=== PATIENT | female | born 1960 | race Caucasian/White ===

== ENCOUNTER 2017-12-22 19:17 | Emergency (ER) | payer SELFPAY ==
[2017-12-22] MEDS ORDERED: KETOROLAC 30 MG/ML INJ ONE (20:10)
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
[2017-12-22 21:31] VITALS: BP 105/69; TEMP 98; O2SAT 98
== END 2017-12-22 20:56 | disposition home or self-care (01) ==
LOC: ER 19:17
DX: S13.9XXA Sprain of joints and ligaments of unspecified parts of neck, initial encounter (principal); V43.52XA Car driver injured in collision with other type car in traffic accident, initial encounter; Y93.9 Activity, unspecified; Y92.410 Unspecified street and highway as the place of occurrence of the external cause
CPT/HCPCS: 96372; 99283

== ENCOUNTER 2017-12-26 14:18 | Emergency (ER) | payer SELFPAY ==
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
--- NOTE | 2017-12-26 16:03 | RAD REPORT ---
EXAM DESCRIPTION: RAD - Lumbar Spine 3 Views - 12/26/2017 3:56 pm CLINICAL HISTORY: back pain Radiculopathy COMPARISON: No comparisons FINDINGS: Vertebral body heights appear maintained. No compression fracture noted. Disc thinning wit h small endplate osteophytes at L4-5 and L5-S1. No spondylolysis or spondylolisthesis. Aortic atherosclerosis is present. IMPRESSION: No acute lumbar spine abnormality. Mild lower lumbar spondylosis.
[2017-12-26] MEDS ORDERED: IBUPROFEN 400 MG TAB ONE (16:42)
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
[2017-12-26 17:08] VITALS: TEMP 97.9
[2017-12-26 17:10] VITALS: BP 107/76; O2SAT 98
== END 2017-12-26 17:03 | disposition home or self-care (01) ==
LOC: ER 14:18
DX: S29.012A Strain of muscle and tendon of back wall of thorax, initial encounter (principal); S33.5XXA Sprain of ligaments of lumbar spine, initial encounter; R51 Headache
CPT/HCPCS: 70450; 72100; 72125; 99284

== ENCOUNTER 2018-01-02 11:37 | Emergency (ER) | payer SELFPAY ==
[2018-01-02] MEDS ORDERED: IBUPROFEN 200 MG TAB PO ONE (13:13)
[2018-01-02] MEDS ORDERED: CYCLOBENZAPRINE 10 MG TAB ONE (13:13)
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
[2018-01-02 14:03] VITALS: BP 112/78; TEMP 97.8; O2SAT 97
== END 2018-01-02 13:54 | disposition home or self-care (01) ==
LOC: ER 11:37
DX: S39.012A Strain of muscle, fascia and tendon of lower back, initial encounter (principal); S29.012A Strain of muscle and tendon of back wall of thorax, initial encounter; S16.1XXA Strain of muscle, fascia and tendon at neck level, initial encounter; V49.49XA Driver injured in collision with other motor vehicles in traffic accident, initial encounter
CPT/HCPCS: 72125; 99284

== ENCOUNTER 2019-06-16 19:05 | Emergency (ER) | payer OTHER ==
--- NOTE | 2019-06-16 21:40 | RAD REPORT ---
EXAM DESCRIPTION: RAD - Knee Right 3 View - 06/16/2019 8:54 pm CLINICAL HISTORY: knee pain, fall COMPARISON: No comparisons FINDINGS: No fracture, dislocation or periosteal reaction.No joint effusion seen. No joint space yu rowing. Contusion or edema is seen in the soft tissues anterior to the proximal tibia and knee joint. No foreign body in the soft tissues. IMPRESSION: Anterior soft tissue contusion/edema change. No acute bone or joint finding. Clinical concerns for internal derangement or occult bony injury could be further assessed with MR im aging.
--- NOTE | 2019-06-16 21:40 | RAD REPORT ---
EXAM DESCRIPTION: RAD - Knee Left 3 View - 06/16/2019 8:54 pm CLINICAL HISTORY: knee pain, fall COMPARISON: No comparisons FINDINGS: No fracture, dislocation or periosteal reaction.No joint effusion seen. No joint space yu rowing. No soft tissue abnormality. IMPRESSION: Negative left knee. Clinical concerns for internal derangement or occult bony injury could be further assessed with MR im aging.
--- NOTE | 2019-06-16 21:46 | EDPHYS ---
Physician Documentation [facility] Name: Pema Gamble Age: 58 yrs Sex: Female : 1960 Arrival Date: 06/16/2019 Time: 19:05 Bed 13 Private MD: ED Physician Richardson Elliott HPI: 06/15 19:44 This 58 yrs old Female presents to ER via Ambulatory with complaints of Fall jmm Injury, Knee Injury. 19:44 Details of fall: The patient fell from an upright position. Onset: The symptoms/episode jmm began/occurred acutely, just prior to arrival. Associated injuries: The patient sustained right and left knee. The patient has not experienced similar symptoms in the past. Patient states she tripped in the parking lot landing on both knees. Patient denies other injury. . Historical: - Allergies: 19:37 No Known Allergies; ca1 - PMHx: 19:37 Heart Murmur; ca1 - PSHx: 19:37 Hysterectomy; ca1 - Immunization history:: Adult Immunizations up to date, Last tetanus immunization: up to date Flu vaccine is not up to date. - Social history:: Smoking status: Patient denies any tobacco usage or history of. ROS: 19:44 Constitutional: Negative for fever, chills, and weight loss, Cardiovascular: Negative jmm for chest pain, palpitations, and edema, Respiratory: Negative for shortness of breath, cough, wheezing, and pleuritic chest pain. 19:44 MS/extremity: Positive for injury or acute deformity, pain. 19:44 All other systems are negative. Exam: 19:44 Constitutional: This is a well developed, well nourished patient who is awake, alert, jmm and in no acute distress. Head/Face: atraumatic. Eyes: EOMI, no conjunctival erythema appreciated ENT: Moist Mucus Membranes Neck: Trachea midline, Supple Chest/axilla: Normal chest wall appearance and motion. Cardiovascular: Regular rate and rhythm. No edema appreciated Respiratory: Normal respirations, no respiratory distress appreciated Abdomen/GI: Non distended, soft Back: Normal ROM 19:44 Musculoskeletal/extremity: FROM appreciated to both knees, compartments soft, full dorsalis pulse, NVI. 19:44 Skin: abrasions noted to the knees bilaterally, no active bleeding is appreciated. 19:44 Neuro: Orientation: is normal, Mentation: is normal, Memory: is normal. 19:44 Psych: Behavior/mood is pleasant, cooperative. Vital Signs: 19:34 BP 114 / 75; Pulse 88; Resp 16 S; Temp 97.2(TE); Pulse Ox 97% on R/A; Weight 81.65 kg ca1 (R); Height 5 ft. 5 in. (165.10 cm) (R); Pain 6/10; 21:56 BP 112 / 68; Pulse 81; Resp 15; Temp 98; Pulse Ox 99% on R/A; rv 19:34 Body Mass Index 29.95 (81.65 kg, 165.10 cm) ca1 MDM: 19:44 Patient medically screened. [facility] 21:44 Data reviewed: vital signs, nurses notes. Counseling: I had a detailed discussion with génesis the patient and/or guardian regarding: the historical points, exam findings, and any diagnostic results supporting the discharge/admit diagnosis, radiology results, the need for outpatient follow up, to return to the emergency department if symptoms worsen or persist or if there are any questions or concerns that arise at home. ED course: Negative xray. Patient is advised to follow up with ortho for further evaluation. Patient understood and agrees with the plan of care. . 03 19:54 Order name: Knee Right 3 View XRAY; Complete Time: 21:44 [facility] 06/15 19:54 Order name: Knee Left 3 View XRAY; Complete Time: 21:44 [facility] 06/15 21:07 Order name: Knee Immobilizer; Complete Time: 21:26 [facility] Administered Medications: No medications were administered Disposition: 06/16 07:44 Co-signature as Attending Physician, Richardson Elliott MD I agree with the assessment and [facility] plan of care. Disposition: 06/16/19 21:45 Discharged to Home. Impression: Internal derangement of knee. - Condition is Stable. - Discharge Instructions: Knee Pain. - Prescriptions for Ibuprofen 600 mg Oral Tablet - take 1 tablet by ORAL route every 6 hours As needed take with food; 30 tablet. - Medication Reconciliation Form, Thank You Letter, Antibiotic Education, Prescription Opioid Use, Work release form form. - Follow up: Private Physician; When: 2 - 3 days; Reason: Recheck today's complaints, Continuance of care, Re-evaluation by your physician. Signatures: Dispatcher [employer] Richardson Gavin MD MD cha Mickail, Joel, PA PA jmm Vicente, Ronaldo, RN RN Adrianna Chawla RN RN ca1 Corrections: (The following items were deleted from the chart) 06/15 21:57 21:45 06/16/2019 21:45 Discharged to Home. Impression: Internal derangement of knee. rv Condition is Stable. Forms are Medication Reconciliation Form, Thank You Letter, Antibiotic Education, Prescription Opioid Use. Follow up: Private Physician; When: 2 - 3 days; Reason: Recheck today's complaints, Continuance of care, Re-evaluation by your physician. génesis
--- NOTE | 2019-06-16 21:46 | ER ---
Nurse's Notes [facility] Name: Pema Gamble Age: 58 yrs Sex: Female : 1960 Arrival Date: 06/16/2019 Time: 19:05 Bed 13 Private MD: Diagnosis: Internal derangement of knee Presentation: 06/15 19:34 Chief complaint: Patient states: Tripped and fell on the parking block today at about ca1 1615. Landed on knees, reports R knee pain. Took 2 Tylenol, and 2 Ibuprofen. Coronavirus screen: The patient has NOT traveled to a country currently being monitored by the [facility] within the last 14 days. The patient has NOT had contact with any known and/or suspected case of coronavirus. Ebola Screen: Patient negative for fever greater than or equal to 101.5 degrees Fahrenheit, and additional compatible Ebola Virus Disease symptoms Patient denies exposure to infectious person. Patient denies travel to an Ebola-affected area in the 21 days before illness onset. No symptoms or risks identified at this time. Initial Sepsis Screen: Does the patient meet any 2 criteria? No. Patient's initial sepsis screen is negative. Does the patient have a suspected source of infection? No. Patient's initial sepsis screen is negative. Risk Assessment: Do you want to hurt yourself or someone else? Patient reports no desire to harm self or others. Onset of symptoms was June 16, 2019 at 16:15. 19:34 Method Of Arrival: Ambulatory ca1 19:34 Acuity: CAMILLE 4 ca1 Historical: - Allergies: 19:37 No Known Allergies; ca1 - PMHx: 19:37 Heart Murmur; ca1 - PSHx: 19:37 Hysterectomy; ca1 - Immunization history:: Adult Immunizations up to date, Last tetanus immunization: up to date Flu vaccine is not up to date. - Social history:: Smoking status: Patient denies any tobacco usage or history of. Screenin:10 Abuse screen: Denies threats or abuse. Denies injuries from another. Nutritional rv screening: No deficits noted. Tuberculosis screening: No symptoms or risk factors identified. Fall Risk None identified. Primary Survey: 20:12 NO uncontrolled hemorrhage observed. rv Assessment: 20:06 General: Appears in no apparent distress. Behavior is calm, cooperative. Pain: rv Complains of pain in right knee and left knee. Neuro: Level of Consciousness is awake, alert, obeys commands, Oriented to person, place, time, situation. Cardiovascular: Patient's skin is warm and dry. Respiratory: Airway is patent. Derm: Wound noted right knee and left knee Wound is abrasions. Vital Signs: 19:34 BP 114 / 75; Pulse 88; Resp 16 S; Temp 97.2(TE); Pulse Ox 97% on R/A; Weight 81.65 kg ca1 (R); Height 5 ft. 5 in. (165.10 cm) (R); Pain 6/10; 21:56 BP 112 / 68; Pulse 81; Resp 15; Temp 98; Pulse Ox 99% on R/A; rv 19:34 Body Mass Index 29.95 (81.65 kg, 165.10 cm) ca1 ED Course: 19:05 Patient arrived in ED. cl3 19:36 Triage completed. ca1 19:37 Arm band placed on right wrist. ca1 19:38 Lenard Perdue PA is PHCP. [facility] 19:38 Richardson Elliott MD is Attending Physician. [facility] 19:56 Venu Alves, JORDEN is Primary Nurse. rv 20:11 ice pack and gini wrap on both knees. rv 20:15 Patient has correct armband on for positive identification. Bed in low position. Pulse rv ox on. NIBP on. 20:16 No provider procedures requiring assistance completed. Patient did not have IV access rv during this emergency room visit. 20:54 Knee Right 3 View XRAY In Process Unspecified. EDMS 20:54 Knee Left 3 View XRAY In Process Unspecified. EDMS Administered Medications: No medications were administered Outcome: 21:45 Discharge ordered by . jmm 21:56 Discharged to home ambulatory. rv 21:56 Condition: good 21:56 Discharge instructions given to patient, Instructed on discharge instructions, follow up and referral plans. medication usage, Demonstrated understanding of instructions, follow-up care, medications, Prescriptions given X 1. 21:57 Patient left the ED. rv Signatures: Dispatcher [employer] EDMS Lenard Perdue PA PA jmm Vicente, Ronaldo, RN RN rv Adrianna Cyr RN RN ca1 Lala Stern cl3 Corrections: (The following items were deleted from the chart) 19:37 19:34 Chief complaint: Patient states: Tripped and fell on the parking block today at ca1 about 1615. Landed on knees, reports R knee pain. ca1
== END 2019-06-16 21:57 | disposition home or self-care (01) ==
LOC: ER 19:05
DX: M25.461 Effusion, right knee (principal); W18.09XA Striking against other object with subsequent fall, initial encounter; Y93.01 Activity, walking, marching and hiking; Y92.481 Parking lot as the place of occurrence of the external cause
CPT/HCPCS: 99284

== ENCOUNTER 2024-03-20 02:54 | Emergency (ER) | payer OTHER ==
--- OUTSIDE RECORDS SUMMARY | 2024-03-20 02:57 | XMS REPORT | Continuity of Care Document ---
Author Name Unknown Address [address] [place] [address] [facility] thconnect Address [address] [place] [address] Care Team Providers Care Gravedigger Name Role Phone Pcp, Patient Does Not Have A Primary Care Physic yesenia Travis Killian Attending Clinician Unavailable MARCELINO RAY Attending Clinician Unavailable Therapy, [facility] Bl[facility] Occup Attending Clinician Unava Marcelino Ramirez MD Attending Clinician [phone] Doctor Unassigned, [place] Attending Clinician U navailable Payers Payer Name Policy Type Policy Number Effective Date Expirati on Date Source [facility] PPO/POS [id number] 2021 00:00:00 [facility] C1 [id number] 2019 00:00:00 [facility] Problems Condition Name Condition Details Condition Category Status Onset Date Resolution Date Last Treatment Date Treating Clinician Comments Source Effusion of finger joint Effusion of finger joint Disease Active 2021-03 00:00: 00 [facility] Finger stiffness, left Finger stiffness, left Disease Active 2021-03 00:00: 00 [facility] Finger pain, left Finger pain, left Disease Active 2021-03 00:00: 00 [facility] [id number] Current moderate episode of major depressive disorder without prior episode Problem Active [facility] [id number] Mixed hyperlipid emia Problem Active [facility] [id number] Pain in joint of left shoulder Problem Active [facility] [id number] Contusion of left shoulder, sequela Problem Active [facility] Allergies, Adverse Reactions, Alerts Allergy Name Allergy Type Status Severity Reaction(s) Onset Date Inactive Date Treating Clinician Comments Source NO KNOWN ALLERGIE S Drug Class Active [facility] Social History Social Habit Start Date Stop Date Quantity Comments Source History of Tobacco Use [facility] Sex Assigned At 1960 00:00:00 1960 00:00:00 [facility] Smoking Status Start Date Stop Date Source Tobacco smoking consumption unknown [facility] Former Smoker 2020-03-09 00:00:00 2020-03-09 00:00:00 [facility] Medications Ordered Medication Name Filled Medication Name Start Date Stop Date Current Medication? Ordering Clinician Indication Dosage Frequency Signature (SIG) Comments Components Source Centrum Centrum Yes Travis Killian not defined [facility] Centrum Centrum No Centrum Vital Signs Vital Name Observation Time Observation Value Comments S ource height 2020-03-09 15:00:00 65 [in_i] [facility] weight 2020-03-09 15:00:00 189 [lb_av] [facility] temperature 2020-03-09 15:00:00 96.4 [degF] [facility] bmi 2020-03-09 15:00:00 31.45 kg/m2 [facility] blood pressure systolic 2020-03-09 15:00:00 112 mm[Hg] [facility] blood pressure diastolic 2020-03-09 15:00:00 74 mm[Hg] [facility] height 2020-02-03 15:00:00 65 [in_i] [facility] weight 2020-02-03 15:00:00 189 [lb_av] [facility] bmi 2020-02-03 15:00:00 31.45 kg/m2 [facility] blood pressure systolic 2020-02-03 15:00:00 110 mm[Hg] Common [facility] blood pressure diastolic 2020-02-03 15:00:00 80 mm[Hg] [facility] height 2020-01-04 10:20:00 65 [in_i] [facility] weight 2020-01-04 10:20:00 186.1 [lb_av] Co [facility] temperature 2020-01-04 10:20:00 97.2 [degF] [facility] bmi 2020-01-04 10:20:00 30.97 kg/m2 [facility] oximetry 2020-01-04 10:20:00 100 % [facility] respiratory rate 2020-01-04 10:20:00 17 /min [facility] blood pressure systolic 2020-01-04 10:20:00 118 mm[Hg] Common [facility] blood pressure diastolic 2020-01-04 10:20:00 73 mm[Hg] [facility] Procedures Procedure Date / Time Performed Performing Clinicia n Source REFERRAL- REQUEST/RESPONSE 2022-02-07 06:01:00 Doctor Unassigned, [place] [facility] Encounters Start Date/Time End Date/Time Encounter Type Admission Type Attending Clinicians Care Facility Care Department Encounter ID Source 2021-04-25 12:11:26 Outpatient Killian [facility] [id number] [facility] 2021-04-25 12:02:36 Outpatient Killian [facility] [id number] [facility] 2021-04-25 12:01:52 Outpatient Killian [facility] [id number] [facility] 2021-04-25 12:01:17 [facility] [id number] [facility] 2021-04-25 11:59:19 [facility] [id number] [facility] 2021-04-25 11:52:19 Out[facility] [id number] [facility] 2021-04-25 11:40:56 Outpatient [facility] [id number] [facility] 2021-04-25 11:16:53 Out[facility] [id number] [facility] 2021-04-25 11:15:56 Out[facility] [id number] [facility] 2021-04-25 11:15:21 [facility] [id number] [facility] 2023-02-25 16:04:37 2023-02-25 16:04:37 Outpatient [facility] [id number] Ever Romeo Ramsey 2023-01-28 10:01:02 2023-01-28 10:01:02 Outpatient [facility] [id number] Ever Mustafa 2022-02-07 15:45:00 2022-02-07 16:36:25 Outpatient MARCELINO [facility] [id number] [facility] 2022-02-07 15:45:00 2022-02-07 16:36:25 Ancillary Visit Therapy, [facility] Bls Occup Marcelino Ray [facility] [id number] [facility] 2022-02-07 00:00:00 2022-02-07 00:00:00 Orders Only Doctor Unassigned, [place] [facility] [id number] [facility] 2020-03-09 00:00:00 2020-03-09 00:00:00 OFFICE VISIT EST PT LEVEL 3 STLMLC STLMLC [id number] [facility] 2020-02-03 00:00:00 2020-02-03 00:00:00 OFFICE VISIT NEW PT LEVEL 3 STLMLC STLMLC [id number] [facility] 2020-01-21 00:00:00 2020-01-21 00:00:00 (TEL) STLMLC STLMLC [id number] [facility] 2020-01-04 00:00:00 2020-01-04 00:00:00 OFFICE VISIT ESTAB PT LEVEL 4 STLMLC STLMLC [id number] [facility] 2020-01-04 00:00:00 2020-01-04 00:00:00 (TEL) STLMLC STLMLC [id number] [facility] 2019-09-17 11:36:00 2019-09-17 11:36:00 [facility] [id number] [facility] 2019-08-25 16:45:00 2019-08-25 16:45:00 [facility] Medicine [id number] [facility] 2019-08-03 16:30:00 2019-08-03 16:30:00 [facility] [id number] [facility] 2019-06-21 09:30:00 2019-06-21 09:30:00 [facility] Family [facility] Medicine [id number] [facility]
[2024-03-20] MEDS ORDERED: ONDANSETRON 4 MG/2 ML VIAL ONE (03:40)
[2024-03-20] MEDS ORDERED: MORPHINE 4 MG/ML SYR ONE (03:41)
[2024-03-20] MEDS ORDERED: NA CHLORIDE 0.9% 1,000 ML ONE (03:41)
[2024-03-20] MEDS ORDERED: KETOROLAC 30 MG/ML INJ ONE (03:41)
[2024-03-20] MEDS ORDERED: methocarbamoL 750 MG TAB ONE (03:41)
[2024-03-20 03:52] LABS: Absolute Eosinophils 0.1 K/uL (0-0.5); Absolute Lymphocytes (CBC) 0.4 K/uL (0.7-4.9); Absolute Monocytes 0.5 K/uL (0.1-1.3); Absolute Neutrophil 2.4 K/uL (1.8-8.0); Basophils % 0.3 % (0-1.3); Hemoglobin 13.6 g/dL (12.0-15.0); Lymphocytes % 13.1 % (15.3-44.8); MCH 31.3 pg (27.0-35.0); MCHC 32.3 g/dL (32.0-36.0); MCV 96.9 fL (80-100); MPV 7.5 fL (7.6-11.3); Monocytes % 14.5 % (3.3-12.3); Neutrophils % 69.1 % (41.7-73.7); Platelets 135 thou/uL (152-406); RBC Red Blood Cell Count 4.33 M/uL (3.86-4.86); Red Cell Distribution Width 13.5 % (12.1-15.2)
[2024-03-20 04:06] LABS: Albumin 3.1 g/dL (3.4-5.0); Albumin/Globulin Ratio 0.9 (1.1-1.8); Anion Gap 7.8 mEq/L (5.0-15.0); Bilirubin Total 0.4 mg/dL (0.2-1.0); Globulin 3.4 g/dL (2.3-3.5); Potassium 3.8 mEq/L (3.5-5.1); Protein, Total 6.5 g/dL (6.4-8.2)
[2024-03-20 04:25] LABS: Specific Gravity 1.017 (1.005-1.030); Sqamous Epithelial None Seen /HPF (None Seen); Urine Bacteria None Seen /HPF (<20); Urine Bilirubin NEGATIVE (Negative); Urine Blood 2+ (Negative); Urine Clarity Clear (Clear); Urine Color Light-Yellow (Yellow); Urine Culture Reflex Order NOT NEEDED; Urine Glucose NEGATIVE (Negative); Urine Ketones NEGATIVE (Negative); Urine Microscopic Reflex YN ORDER UMIC; Urine Nitrite NEGATIVE (Negative); Urine Protein NEGATIVE (Negative); Urine RBC <5 /HPF (None Seen); Urine Urobilinogen Normal (Normal); Urine WBC <5 /HPF (<5); Urine pH 5.5 (5.0-7.0)
--- NOTE | 2024-03-20 06:17 | RAD REPORT ---
EXAM DESCRIPTION: Abdomen Pelvis W Contrast RadLex: CT ABDOMEN PELVIS WITH IV CONTRAST CLINICAL HISTORY: 63 years Female; back pain; IV ONLY Bed Name: 6 TECHNIQUE: CT of the abdomen and pelvis [with] intravenous contrast. All CT scans at this facility use dose modulation, iterative reconstruction, and/or weight based dosi ng when appropriate to reduce radiation dose to as low as reasonably achievable. COMPARISON: CT abdomen pelvis 06/19/2023. FINDINGS: Lower thorax: Lung bases are clear Abdomen: Stomach: Within normal limits Liver: No focal lesions. No intrahepatic ductal distention. Gallbladder: Nondistended Pancreas: Within normal limits Spleen: Within normal limits Right kidney: No hydronephrosis. Renal sinus cysts noted. Left kidney: No hydronephrosis. 2 mm renal stone. Multiple renal sinus cysts. Adrenal glands: Within normal limits Vascular structures: Atherosclerosis of the abdominal aorta and major branches. Nodes: No lymphadenopathy by size criteria Pelvis: Small bowel: No significant distention. Appendix: Within normal limits Colon: No distention or acute pericolonic edema. Peritoneum: No free intraperitoneal fluid or air. Bones: No acute bone findings. Bladder: Unremarkable. Reproductive organs: No acute findings. IMPRESSION: 1. No acute abdominopelvic findings. 2. Left-sided nephrolithiasis. No hydronephrosis. Electronically signed by: Airam Oconnor MD 03/20/2024 06:13 AM [facility] Z9 Due to temporary technical issues with the [employer] reporting system, reports are being adrienne d by the in-house radiologist without review as a courtesy to ensure prompt reporting the interpreting radiologist is fully responsible for the content of the report. Transcribed Date/Time: 03/20/2024 6:17 AM
--- NOTE | 2024-03-20 06:56 | ER ---
Nurse's Notes [facility] Name: Pema Gamble Age: 63 yrs Sex: Female : 1960 Arrival Date: 03/20/2024 Time: 02:54 Bed 6 Private MD: Diagnosis: Acute exacerbation of chronic back pain, elevation of liver enzymes, Presentation: 03/20 02:57 Chief complaint: EMS states: Toned out for c/o weakness and urinary urgency. Per EMS, dd2 Pt reported unable to ambulated but, ambulated to ambulance with steady gait. Coronavirus screen: At this time, the client does not indicate any symptoms associated with coronavirus-19. Ebola Screen: No symptoms or risks identified at this time. 02:57 Method Of Arrival: EMS: [facility] dd2 03:03 Initial Sepsis Screen: Does the patient meet any 2 criteria? No. Patient's initial dd2 sepsis screen is negative. Does the patient have a suspected source of infection? No. Patient's initial sepsis screen is negative. Risk Assessment: Do you want to hurt yourself or someone else? Patient reports no desire to harm self or others. Onset of symptoms is unknown. Care prior to arrival: Glucose check: 108. 03:03 Acuity: CAMILLE 3 dd2 Triage Assessment: 03:04 General: Appears in no apparent distress. Behavior is calm, cooperative, appropriate dd2 for age, Smells of STRONG URINE. Pain: Complains of pain in low back area Pain does not radiate. Pain currently is 8 out of 10 on a pain scale. EENT: No deficits noted. No signs and/or symptoms were reported regarding the EENT system. Neuro: No deficits noted. Level of Consciousness is awake, alert, obeys commands, Oriented to person, place, time, situation, Appropriate for age. Cardiovascular: No deficits noted. Patient's skin is warm and dry. Respiratory: No deficits noted. Airway is patent Respiratory effort is even, unlabored, Respiratory pattern is regular, symmetrical. GI: No deficits noted. : Reports urgency, urinary frequency. Derm: No deficits noted. No signs and/or symptoms reported regarding the dermatologic system. Musculoskeletal: Circulation, motion, and sensation intact. Range of motion: intact in all extremities. Historical: - Allergies: 03:04 No Known Allergies; dd2 - PMHx: 03:04 Heart Murmur; CHRONIC BACK PAIN (Heart Murmur); Hypercholesterolemia; dd2 - PSHx: 03:04 None; dd2 - Immunization history:: Adult Immunizations up to date. - Infectious Disease History:: Denies. - Social history:: Smoking status: Patient denies any tobacco usage or history of. - Family history:: not pertinent. Screenin:19 [facility] ED Fall Risk Assessment (Adult) History of falling in the last 3 months, dd2 including since admission No falls in past 3 months (0 pts) Confusion or Disorientation No (0 pts) Intoxicated or Sedated No (0 pts) Impaired Gait No (0 pts) Mobility Assist Device Used No (0 pt) Altered Elimination No (0 pt) Score/Fall Risk Level 0 - 2 = Low Risk Oriented to surroundings, Maintained a safe environment, Educated pt \T\ family on fall prevention, incl call for assistance when getting out of bed, Assessed \T\ reinforced patient's understanding of fall precautions, Hourly rounding (assess needs \T\ fall precautionary measures) done. Abuse screen: Denies threats or abuse. Nutritional screening: No deficits noted. Tuberculosis screening: No symptoms or risk factors identified. Assessment: 03:08 Reassessment: SEE TRIAGE ASSESSMENT FOR FULL ASSESSMENT. dd2 05:59 Reassessment: Patient appears in no apparent distress at this time. Patient and/or al5 family updated on plan of care and expected duration. Pain level reassessed. Patient is alert, oriented x 3, equal unlabored respirations, skin warm/dry/pink. Patient states feeling better. 07:15 Reassessment: Patient is alert, oriented x 3, equal unlabored respirations, skin aa5 warm/dry/pink. Vital Signs: 02:57 BP 121 / 88; Pulse 110; Resp 16; Temp 98.9; Pulse Ox 99% on R/A; dd2 03:19 BP 112 / 76; Pulse 108; Resp 16; Pulse Ox 97% on R/A; dd2 03:30 BP 113 / 75; Pulse 105; Resp 17; Pulse Ox 96% on R/A; al5 03:45 BP 122 / 87; Pulse 114; Resp 18; Pulse Ox 97% on R/A; al5 04:00 BP 109 / 72; Pulse 104; Resp 18; Pulse Ox 95% on R/A; al5 04:30 BP 86 / 53; Pulse 99; Resp 16; Pulse Ox 94% on R/A; al5 05:00 BP 87 / 53; Pulse 96; Resp 16; Pulse Ox 93% on R/A; al5 05:30 BP 90 / 55; Pulse 98; Resp 16; Pulse Ox 95% on R/A; al5 06:00 BP 103 / 67; Pulse 88; Resp 16; Pulse Ox 95% on R/A; al5 07:00 BP 104 / 60; Pulse 93; Resp 18 S; Temp 97.5(TE); Pulse Ox 98% on R/A; aa5 04:30 patient side lying al5 05:00 patient side lying al5 05:30 patient side lying al5 [place] Coma Score: 03:19 Eye Response: spontaneous(4). Motor Response: obeys commands(6). Verbal Response: dd2 oriented(5). Total: 15. 21:08 Eye Response: spontaneous(4). Motor Response: obeys commands(6). Verbal Response: sp4 oriented(5). Total: 15. ED Course: 02:56 Patient arrived in ED. dd2 02:59 Andrzej Barry MD is Attending Physician. lg3 03:04 Triage completed. dd2 03:08 Arm band placed on right wrist. Patient placed in an exam room, on a stretcher, on dd2 pulse oximetry. 03:19 Patient has correct armband on for positive identification. Bed in low position. Call dd2 light in reach. Side rails up X2. Client placed on continuous cardiac and pulse oximetry monitoring. NIBP monitoring applied. Door closed. Noise minimized. Warm blanket given. Pillow given. Verbal reassurance given. 03:19 Provided Education on: plan of care. al5 03:19 No provider procedures requiring assistance completed. Initial lab(s) drawn, by ED dd2 staff, sent to lab. Urine collected: clean catch specimen, clear. Inserted saline lock: 22 gauge in right antecubital area, using aseptic technique. Blood collected. Flushed with 10 mL NS. Patient maintains SpO2 saturation greater than 95% on room air. 03:44 Kathy Jackson RN is Primary Nurse. al5 04:22 CT Abd/Pelvis - IV Contrast Only In Process Unspecified. EDMS 06:53 Nacho Springer MD is Referral Physician. sp4 07:20 IV discontinued, intact, bleeding controlled, No redness/swelling at site. Pressure aa5 dressing applied. Administered Medications: 03:51 Drug: morphine IVP or IV 4 mg IVP once over 4 mins Route: IVP; Infused Over: 4 mins; dd2 Site: right antecubital; 06:00 Follow up: Response: No adverse reaction; Pain is decreased al5 03:51 Drug: Ketorolac IVP 30 mg IVP once Route: IVP; Site: right antecubital; dd2 06:00 Follow up: Response: No adverse reaction; Pain is decreased al5 03:51 Drug: Ondansetron IVP 4 mg IVP once; over 2 minutes Route: IVP; Site: right antecubital;dd2 06:00 Follow up: Response: No adverse reaction; Nausea is decreased al5 03:51 Drug: Methocarbamol PO 1500 mg PO once Route: PO; dd2 06:00 Follow up: Response: No adverse reaction; Pain is decreased al5 03:52 Drug: NS 0.9% IV 1000 ml IV at 1 bolus Per protocol; to be given as a bolus over 60 dd2 minutes Route: IV; Rate: 1 bolus; Site: right antecubital; 04:07 Follow up: Response: No adverse reaction dd2 04:52 Follow up: IV Status: Completed infusion; IV Intake: 1000ml dd2 07:15 Drug: HYDROcodone-acetaminophen PO 5 mg-325 mg 2 tabs PO once Route: PO; aa5 07:20 Follow up: Response: Medication administered at discharge. aa5 Medication: 03:19 VIS not applicable for this client. dd2 Intake: 04:52 IV: 1000ml; Total: 1000ml. dd2 Outcome: 06:56 Discharge ordered by . sp4 07:20 Discharged to home ambulatory, Via taxi cab aa5 07:20 Condition: stable 07:20 Discharge instructions given to patient, Instructed on discharge instructions, follow up and referral plans. medication usage, Demonstrated understanding of instructions, follow-up care, medications, Prescriptions given X 1, 07:21 Patient left the ED. aa5 Signatures: Dispatcher [facility] Donna Farnsworth RN RN aa5 Anyi Bush RN RN lg3 Andrzej Barry MD MD sp4 Kathy Jackson, RN RN al5 ALCIRA WRIGHT, JORDEN RN dd2
--- NOTE | 2024-03-20 06:56 | EDPHYS ---
Physician Documentation [facility] Name: Pema Gamble Age: 63 yrs Sex: Female : 1960 Arrival Date: 03/20/2024 Time: 02:54 Bed 6 Private MD: ED Physician Andrzej Barry HPI: 03/20 05:28 This 63 yrs old Female presents to ER via EMS with complaints of Weakness, sp4 Urinary Frequency. 21:03 Presents with complaint of bilateral lower extremity weakness, worsening chronic back sp4 pain, and urinary frequency. Presents with EMS patient states she was unable to ambulate at home. Historical: - Allergies: 03:04 No Known Allergies; dd2 - PMHx: 03:04 Heart Murmur; CHRONIC BACK PAIN (Heart Murmur); Hypercholesterolemia; dd2 - PSHx: 03:04 None; dd2 - Immunization history:: Adult Immunizations up to date. - Infectious Disease History:: Denies. - Social history:: Smoking status: Patient denies any tobacco usage or history of. - Family history:: not pertinent. ROS: 21:08 Constitutional: Negative for fever, chills, and weight loss, positive for lower back sp4 pain, positive urinary frequency, positive bilateral leg weakness 21:08 All other systems are negative, Exam: 21:08 Constitutional: This is a well developed, well nourished patient who is awake, alert, sp4 and in no acute distress. Head/Face: Normocephalic, atraumatic. Eyes: Pupils equal round and reactive to light, extra-ocular motions intact. Lids and lashes normal. Conjunctiva and sclera are not injected. Cornea within normal limits. Periorbital areas with no swelling, redness, or edema. ENT: Nares patent. No nasal discharge, no septal abnormalities noted. Tympanic membranes are normal and external auditory canals are clear. Oropharynx with no redness, swelling, or masses, exudates, or evidence of obstruction, uvula midline. Mucous membranes moist. Neck: Trachea midline, no thyromegaly or masses palpated, and no cervical lymphadenopathy. Supple, full range of motion without nuchal rigidity, or vertebral point tenderness. Chest/axilla: Normal chest wall appearance and motion. Nontender with no deformity. No lesions are appreciated. Cardiovascular: Regular rate and rhythm with a normal S1 and S2. No gallops, murmurs, or rubs. Normal PMI, no JVD. No pulse deficits. Respiratory: Lungs have equal breath sounds bilaterally, clear to auscultation and percussion. No rales, rhonchi or wheezes noted. No increased work of breathing, no retractions or nasal flaring. Abdomen/GI: Soft, with normal bowel sounds. No distension or tympany. No guarding or rebound. No evidence of tenderness throughout. Back: No spinal tenderness. No costovertebral tenderness. Skin: Warm, dry with normal turgor. Normal color with no rashes, no lesions, and no evidence of cellulitis. MS/ Extremity: Pulses equal, no cyanosis. Neurovascular intact. Full, normal range of motion. Neuro: Awake and alert, GCS 15, oriented to person, place, time, and situation. Cranial nerves II-XII grossly intact. Motor strength 5/5 in all extremities. Sensory grossly intact. Psych: Awake, alert, with orientation to person, place and time. Behavior, mood, and affect are within normal limits Vital Signs: 02:57 BP 121 / 88; Pulse 110; Resp 16; Temp 98.9; Pulse Ox 99% on R/A; dd2 03:19 BP 112 / 76; Pulse 108; Resp 16; Pulse Ox 97% on R/A; dd2 03:30 BP 113 / 75; Pulse 105; Resp 17; Pulse Ox 96% on R/A; al5 03:45 BP 122 / 87; Pulse 114; Resp 18; Pulse Ox 97% on R/A; al5 04:00 BP 109 / 72; Pulse 104; Resp 18; Pulse Ox 95% on R/A; al5 04:30 BP 86 / 53; Pulse 99; Resp 16; Pulse Ox 94% on R/A; al5 05:00 BP 87 / 53; Pulse 96; Resp 16; Pulse Ox 93% on R/A; al5 05:30 BP 90 / 55; Pulse 98; Resp 16; Pulse Ox 95% on R/A; al5 06:00 BP 103 / 67; Pulse 88; Resp 16; Pulse Ox 95% on R/A; al5 07:00 BP 104 / 60; Pulse 93; Resp 18 S; Temp 97.5(TE); Pulse Ox 98% on R/A; aa5 04:30 patient side lying al5 05:00 patient side lying al5 05:30 patient side lying al5 [place] Coma Score: 03:19 Eye Response: spontaneous(4). Motor Response: obeys commands(6). Verbal Response: dd2 oriented(5). Total: 15. 21:08 Eye Response: spontaneous(4). Motor Response: obeys commands(6). Verbal Response: sp4 oriented(5). Total: 15. MDM: 03:05 Medical Screening Exam initiated sp4 06:51 ED course: EXAM DESCRIPTION: Abdomen Pelvis W Contrast RadLex: CTABDOMEN PELVIS WITH IV sp4 CONTRAST CLINICAL HISTORY: 63 years Female; back pain; IV ONLYBed Name: 6 TECHNIQUE: CT of the abdomen and pelvis [with] intravenous contrast. All CT scans at this facility use dose modulation, iterative reconstruction, and/or weight based dosing when appropriate to reduce radiation dose to as low as reasonably achievable. COMPARISON: CT abdomen pelvis 06/19/2023. FINDINGS: Lower thorax: Lung bases are clear Abdomen: Stomach:Within normal limits Liver:No focal lesions. No intrahepatic ductal distention. Gallbladder:Nondistended Pancreas:Within normal limits Spleen:Within normal limits Right kidney:No hydronephrosis. Renal sinus cysts noted. Left kidney:No hydronephrosis. 2 mm renal stone. Multiple renal sinus cysts. Adrenal glands:Within normal limits Vascular structures:Atherosclerosis of the abdominal aorta and major branches. Nodes:No lymphadenopathy by size criteria Pelvis: Small bowel:No significant distention. Appendix:Within normal limits Colon:No distention or acute pericolonic edema. Peritoneum: No free intraperitoneal fluid or air. Bones: No acute bone findings. Bladder: Unremarkable. Reproductive organs: No acute findings. IMPRESSION: 1. No acute abdominopelvic findings. 2. Left-sided nephrolithiasis. No hydronephrosis. Electronically signed by: Airam Oconnor MD 03/20/2024 06:13 AM. 06:52 Data reviewed: vital signs, nurses notes, EMS record, lab test result(s), radiologic sp4 studies. Consideration of Admission/Observation Escalation of care including admission/observation considered. ED course: Patient managed to stand up and ambulate. Patient has elevation of liver enzymes. Patient will be advised to see her primary care physician Dr. Srpinger for liver enzyme check an MRI of the L-spine. . 21:08 ED course: Based on the CT patient has significant degenerative changes of the L-spine. sp4 Will advise outpatient visit with Dr. Springer for outpatient MRI of the L-spine. 03/20 03:05 Order name: CBC with Diff; Complete Time: 05:28 sp4 03/20 03:05 Order name: CMP; Complete Time: 05:28 sp4 03/20 03:05 Order name: Lipase; Complete Time: 05:28 sp4 03/20 03:05 Order name: Urinalysis w/ reflexes; Complete Time: 05:28 sp4 03/20 03:10 Order name: CRP; Complete Time: 05:28 sp4 03/20 03:11 Order name: CT Abd/Pelvis - IV Contrast Only; Complete Time: 07:19 sp4 03/20 03:05 Order name: IV Saline Lock; Complete Time: 03:44 sp4 03/20 03:05 Order name: Labs collected and sent; Complete Time: 03:44 sp4 Administered Medications: 03:51 Drug: morphine IVP or IV 4 mg IVP once over 4 mins Route: IVP; Infused Over: 4 mins; dd2 Site: right antecubital; 06:00 Follow up: Response: No adverse reaction; Pain is decreased al5 03:51 Drug: Ketorolac IVP 30 mg IVP once Route: IVP; Site: right antecubital; dd2 06:00 Follow up: Response: No adverse reaction; Pain is decreased al5 03:51 Drug: Ondansetron IVP 4 mg IVP once; over 2 minutes Route: IVP; Site: right antecubital;dd2 06:00 Follow up: Response: No adverse reaction; Nausea is decreased al5 03:51 Drug: Methocarbamol PO 1500 mg PO once Route: PO; dd2 06:00 Follow up: Response: No adverse reaction; Pain is decreased al5 03:52 Drug: NS 0.9% IV 1000 ml IV at 1 bolus Per protocol; to be given as a bolus over 60 dd2 minutes Route: IV; Rate: 1 bolus; Site: right antecubital; 04:07 Follow up: Response: No adverse reaction dd2 04:52 Follow up: IV Status: Completed infusion; IV Intake: 1000ml dd2 07:15 Drug: HYDROcodone-acetaminophen PO 5 mg-325 mg 2 tabs PO once Route: PO; aa5 07:20 Follow up: Response: Medication administered at discharge. aa5 Disposition Summary: 03/20/24 06:56 Discharge Ordered Problem: new sp4 Symptoms: have improved sp4 Condition: Stable sp4 Diagnosis - Acute exacerbation of chronic back pain, elevation of liver enzymes, sp4 Followup: sp4 - With: Nacho Springer MD - When: 7 - 10 days - Reason: Recheck today's complaints Discharge Instructions: - Discharge Summary Sheet sp4 - Liver Function Tests sp4 Forms: - Patient Portal Instructions sp4 Prescriptions: - Tramadol 50 mg Oral tablet - take 1 tablet ORAL route every 8 hours as needed; 20 tablet; Refills: 0, sp4 Product Selection Permitted Signatures: Dispatcher [employer] EDMS Richardson Elliott MD MD cha Calderon, Audri RN RN aa5 Andrzej Barry MD MD sp4 ALCIRA WRIGHT RN RN dd2 Kathy Jackson RN al5 Corrections: (The following items were deleted from the chart) 03:05 03:05 CBC+H.LAB.BRZ ordered. EDMS EDMS 03:05 03:05 COMPREHENSIVE METABOLIC PANEL+C.LAB.BRZ ordered. EDMS EDMS 03:05 03:05 LIPASE+C.LAB.BRZ ordered. EDMS EDMS 03:05 03:05 Urinalysis+U.LAB.BRZ ordered. EDMS EDMS 03:11 03:11 Abdomen Pelvis W Con+CT.RAD.BRZ ordered. EDMS EDMS
[2024-03-20] MEDS ORDERED: HYDROCODONE/APAP 5/325 MG TAB ONE (07:09)
[2024-03-20 07:27] VITALS: TEMP 98.9
[2024-03-20 07:36] VITALS: O2SAT 95
[2024-03-20 07:37] VITALS: BP 103/67
== END 2024-03-20 07:21 | disposition home or self-care (01) ==
LOC: ER 02:54
DX: M54.50 Low back pain, unspecified (principal); R74.01 Elevation of levels of liver transaminase levels; R53.1 Weakness; R35.0 Frequency of micturition
CPT/HCPCS: 96361; 85025; 81001; 36415; 83690; 80053; 86140; 74177; 96375; 96374; 99285; Q9967; J2405; J7030